=== PATIENT | male | born 1950 | race Caucasian/White ===

== ENCOUNTER 2024-06-15 20:52 | Emergency (ER) | payer MEDICARE, OTHER ==
[2024-06-15 20:55] VITALS: RESP 20; TEMP 96.7
--- NOTE | 2024-06-15 20:59 | ERPHSYRPT ---
- History of Present Illness Time Seen by Provider: 06/15/24 20:58 Historian: patient, EMS Exam Limitations: no limitations Physician History: This is a morbidly obese white male patient who presents to the emergency department transported by the paramedics because of sudden onset of significant vomiting that began at 4 PM this afternoon prior to arrival. However, he does state that he felt nauseated and queasiness yesterday but without vomiting. He has vomited multiple times and has some abdominal pain that he describes as generalized mild achiness as well as associated diarrhea. Patient states that his son has similar symptoms. The interface designer service provided the patient with intravenous Zofran and began intravenous normal saline solution and his symptoms are improving. Patient denies chest pain and he denies shortness of breath. States that he has headache and bodyaches. Patient has a history of diabetes, hypertension, hyperlipidemia, COPD, sleep apnea and coronary artery disease. Timing/Duration: yesterday (Queasiness began yesterday evening), sudden, worse (Today at 4 PM) Abdominal Pain Onset Location: generalized abdomen Severity of Pain-Max: mild Severity of Pain-Current: mild Modifying Factors: Improves With: vomiting Associated Symptoms: headache, loss of appetite, nausea, vomiting, weakness, No shortness of breath Allergies/Adverse Reactions: NSAIDS (Non-Steroidal Anti-Inflamma Adverse Reaction (Severe, Verified 06/15/24 21:05) Irregular Heart Beat metformin Adverse Reaction (Intermediate, Verified 06/15/24 21:05) Diarrhea Home Medications: Allopurinol 300 mg [Zyloprim 300 mg] 1 tab PO HS 06/15/24 [History] Alpha Lipoic Acid 1 tab PO HS 06/15/24 [History] Dapagliflozin Propanediol [Farxiga] 1 tab PO DAILY 06/15/24 [History] Dulaglutide [Trulicity] 4.5 mg SQ WEEKLY 06/15/24 [History] Escitalopram Oxalate 1 tab PO DAILY 06/15/24 [History] Gabapentin [Neurontin ] 100 mg PO TID 06/15/24 [History] Glimepiride 2 mg [Amaryl 2 MG] 1 tab PO DAILY 06/15/24 [History] Lipase/Protease/Amylase [Michael Lopez 12,000 Unit Capsule] 2 tab PO TID 06/15/24 [History] Multivitamin [Multi-Vitamin Daily] 1 tab PO DAILY 06/15/24 [History] Mv-Mn/Iron/Folic Acid/Herb 190 [Vitamin D3 Complete Caplet] 1 tab PO DAILY 06/15 [History] Simvastatin 20Mg [Zocor 20Mg] 1 tab PO HS 06/15/24 [History] icosapent ethyL [Vascepa] 2 cap PO BID 06/15/24 [History] lisinopriL [Lisinopril] 1 tab PO BID 06/15/24 [History] Travel Risk - International Travel Have you traveled outside of the country in past 3 weeks: No - Emerging Infectious Disease Are you exhibiting symptoms associated with any current EIDs: Yes Symptoms: Abdominal Pain, Diarrhea, Headaches/Body Aches/, Vomitting - Review of Systems Constitutional: Weakness Eyes: No Symptoms Ears, Nose, & Throat: No Symptoms Respiratory: No Symptoms Cardiac: No Symptoms Abdominal/Gastrointestinal: Abdominal Pain, Nausea, Vomiting, Diarrhea, Appetite Changes Genitourinary Symptoms: No Symptoms Musculoskeletal: Arthralgias, Myalgias Skin: No Symptoms Neurological: No Symptoms Psychological: No Symptoms Endocrine: No Symptoms Hematologic/Lymphatic: No Symptoms Immunological/Allergic: No Symptoms All Other Systems: Reviewed and Negative - Past Medical History Neurological History: Peripheral Neuropathy Cardiac History: Angina, Coronary Artery Disease, High Cholesterol, Hypertension Respiratory History: COPD, Sleep Apnea Endocrine Medical History: Diabetes Type II, Liver Disease Musculoskeletal History: Arthritis Other Medical History: impaired kidney function - Nursing Vital Signs Nursing Vital Signs: Initial Vital Signs Temperature 96.7 F 06/15/24 20:53 Pulse Rate 115 H 06/15/24 20:53 Respiratory Rate 20 06/15/24 20:53 Blood Pressure 118/82 06/15/24 20:53 O2 Sat by Pulse Oximetry 94 L 06/15/24 20:53 Pain Scale Pain Intensity 2 - Physical Exam General Appearance: no apparent distress, alert, obese Eye Exam: PERRL/EOMI, eyes nml inspection Ears, Nose, Throat Exam: normal ENT inspection, moist mucous membranes Neck Exam: normal inspection, non-tender, supple, full range of motion Respiratory Exam: normal breath sounds, lungs clear, respiratory distress, airway intact, No chest tenderness Cardiovascular Exam: tachycardia Gastrointestinal/Abdomen Exam: soft, normal bowel sounds, No tenderness Rectal Exam: not done Back Exam: normal inspection, normal range of motion, No CVA tenderness, No clemente tebral tenderness Extremity Exam: normal inspection, normal range of motion, pelvis stable Neurologic Exam: alert, oriented x 3, cooperative, inside trucker II-XII nml as tested, normal mood/affect, nml cerebellar function, nml station & gait, sensation nml Skin Exam: normal color, warm, dry Lymphatic Exam: No adenopathy SpO2 Interpretation: borderline oxygenation SpO2: 94 - Course Nursing assessment & vital signs reviewed: Yes EKG Interpreted by Me: RATE ([id number]), Sinus Tach, NORMAL AXIS, NORMAL INTERVALS, NORMAL QRS, Other (No acute ischemia on today's twelve-lead EKG.) Ordered Tests: Active Orders 24 hr Category Date Time Status IV Insertion STAT Care 06/15/24 21:12 Active AMYLASE Stat Lab 06/15/24 21:40 Completed CBC W DIFF Stat Lab 06/15/24 21:40 Completed CMP Stat Lab 06/15/24 21:40 Completed LIPASE Stat Lab 06/15/24 21:40 Completed MONO SCREEN Stat Lab 06/15/24 21:40 Completed UA W/RFX UR CULTURE Stat Lab 06/15/24 21:12 Ordered Medication Summary Discontinued Medications Generic Name Dose Route Start Last Admin Trade Name Freq PRN Reason Stop Dose Admin Lactated Ringer's 1,000 mls @ 999 mls/hr 06/15/24 22:58 06/16/24 00:34 Lactated Ringers IV 06/15/24 23:58 Infused .Q1H1M ONE Infusion Lactated Ringer's Confirm 06/15/24 23:13 Lactated Ringers Administered 06/15/24 23:14 Dose 1,000 mls @ ud IV .STK-MED ONE Ondansetron HCl 4 mg 06/16/24 00:53 Ondansetron Hcl 4 Mg/2 Ml Vial IV 06/16/24 00:54 STAT ONE Pantoprazole Sodium 40 mg 06/15/24 21:12 06/15/24 21:30 Pantoprazole 40 Mg Vial IV 06/15/24 21:13 40 mg STAT ONE Administration Pantoprazole Sodium Confirm 06/15/24 21:25 Pantoprazole 40 Mg Vial Administered 06/15/24 21:26 Dose 40 mg IV .STK-MED ONE Lab/Rad Data: Laboratory Result Diagrams 06/15/24 21:40 06/15/24 21:40 Laboratory Results 06/15/24 06/15/24 06/15/24 Range/Units 21:41 21:40 21:40 WBC (4.23-9.07) x10^3/uL RBC (4.63-6.08) x10^6/uL Hgb (13.7-17.5) g/dL Hct (40.1-51.0) % MCV (79.0-92.2) fL MCH (25.7-32.2) pg MCHC (32.3-36.5) g/dL RDW (11.6-14.4) % Plt Count (163-337) x10^3/uL MPV (9.4-12.4) fL Gran % (34.0-67.9) % Immature Gran % (Auto) (0.001-0.429) % Nucleat RBC Rel Count (0.00-0.2) % Eos # (Auto) (0.04-0.54) x10^3/uL Immature Gran # (Auto) (0.001-0.031) x10^3u/L Absolute Lymphs (auto) (1.32-3.57) x10^3/uL Absolute Monos (auto) (0.30-0.82) x10^3/uL Absolute Nucleated RBC (0.00-0.012) x10^3u/L Lymphocytes % (21.8-53.1) % Monocytes % (5.3-12.2) % Eosinophils % (0.8-7.0) % Basophils % (0.2-1.2) % Absolute Granulocytes (1.78-5.38) x10^3/uL Basophils # (0.01-0.08) x10^3/uL Sodium 143 (135-145) mmol/L Potassium 4.6 (3.5-5.1) mmol/L Chloride 102 (98-107) mmol/L Carbon Dioxide 24 (22-30) mmol/L Anion Gap 21.0 H (5-15) MEQ/L BUN 22 H (9-20) mg/dL Creatinine 1.36 H (0.66-1.25) mg/dL Estimated GFR 55.3 ML/MIN Glucose 200 H (74-106) mg/dL Calcium 9.9 (8.4-10.2) mg/dL Total Bilirubin 0.90 (0.2-1.3) mg/dL AST 49 (17-59) U/L ALT 53 H (0-50) U/L Alkaline Phosphatase 98 (38-126) U/L Serum Total Protein 8.6 H (6.3-8.2) g/dL Albumin 5.0 (3.5-5.0) g/dL Amylase 53 (30-110) U/L Lipase 211 (23-300) U/L Monoscreen NEGATIVE (NEGATIVE) Influenza Type A Ag NEGATIVE (NEGATIVE) Influenza Type B Ag NEGATIVE (NEGATIVE) RSV (PCR) NEGATIVE (NEGATIVE) SARS-CoV-2 (PCR) NEGATIVE (NEGATIVE) 06/15/24 Range/Units 21:40 WBC 9.7 H (4.23-9.07) x10^3/uL RBC 6.17 H (4.63-6.08) x10^6/uL Hgb 19.7 H (13.7-17.5) g/dL Hct 57.8 H (40.1-51.0) % MCV 93.7 H (79.0-92.2) fL MCH 31.9 (25.7-32.2) pg MCHC 34.1 (32.3-36.5) g/dL RDW 13.2 (11.6-14.4) % Plt Count 160 L (163-337) x10^3/uL MPV 8.8 L (9.4-12.4) fL Gran % 77.1 H (34.0-67.9) % Immature Gran % (Auto) 0.2 (0.001-0.429) % Nucleat RBC Rel Count 0.0 (0.00-0.2) % Eos # (Auto) 0.96 H (0.04-0.54) x10^3/uL Immature Gran # (Auto) 0.02 (0.001-0.031) x10^3u/L Absolute Lymphs (auto) 0.74 L (1.32-3.57) x10^3/uL Absolute Monos (auto) 0.45 (0.30-0.82) x10^3/uL Absolute Nucleated RBC 0.00 (0.00-0.012) x10^3u/L Lymphocytes % 7.6 L (21.8-53.1) % Monocytes % 4.6 L (5.3-12.2) % Eosinophils % 9.9 H (0.8-7.0) % Basophils % 0.6 (0.2-1.2) % Absolute Granulocytes 7.48 H (1.78-5.38) x10^3/uL Basophils # 0.06 (0.01-0.08) x10^3/uL Sodium (135-145) mmol/L Potassium (3.5-5.1) mmol/L Chloride (98-107) mmol/L Carbon Dioxide (22-30) mmol/L Anion Gap (5-15) MEQ/L BUN (9-20) mg/dL Creatinine (0.66-1.25) mg/dL Estimated GFR ML/MIN Glucose (74-106) mg/dL Calcium (8.4-10.2) mg/dL Total Bilirubin (0.2-1.3) mg/dL AST (17-59) U/L ALT (0-50) U/L Alkaline Phosphatase (38-126) U/L Serum Total Protein (6.3-8.2) g/dL Albumin (3.5-5.0) g/dL Amylase (30-110) U/L Lipase (23-300) U/L Monoscreen (NEGATIVE) Influenza Type A Ag (NEGATIVE) Influenza Type B Ag (NEGATIVE) RSV (PCR) (NEGATIVE) SARS-CoV-2 (PCR) (NEGATIVE) - Progress Progress: improved Progress Note: 06/15/24 22:16 My medical decision making and the assignment of moderate complexity to this patient's medical issue today is based on review of the patient's past medical history, review of the patient's medication list, reviewed the patient drug allergy list, history present illness and physical findings on examination. The workup in this patient includes intravenous fluid infusion, CBC, CMP, amylase, lipase, monotest, viral swabs. Differential diagnosis includes but is not limited to viral illness, mononucleosis, dehydration, urinary tract infection, DKA 06/16/24 00:08 I interpreted the patient's laboratory data results. The patient does have a normal CO2 and a elevated anion gap. He has evidence of dehydration. Clinically, the patient states that he is feeling much better after the intravenous antiemetic and intravenous fluids. We will wait for him to finish the second liter of crystalloid and reassess him. I think he can be discharged to home. We will make that determination after reassessment. 06/16/24 00:54 I reexamined this patient. He states he is feeling much better and wants to go home. His heart rate only came and ran between 111 and 115 bpm and was sinus tachycardia. He is now running 103 to 104 bpm. He has no chest pain. He has no shortness of breath. His nausea has improved. He has been tolerating clear liquids. Counseled pt/family regarding: lab results, diagnosis, need for follow-up Medical Desision Making - Independent Historian Additional History obtained from: Stereoptician/EMT - Diagnostic Testing Diagnostic test were ordered, analyzed, and reviewed by me: Yes - Risk of complications The pt has a mod risk of morbidity or mortality based on: Need for prescription drug management - Departure Departure Disposition: Home Clinical Impression: Viral syndrome, Dehydration, Arthralgia, Myalgia Condition: Stable Critical Care Time: No Referrals: DEYA TORRES DO [Primary Care Provider] - Follow up/PCP as directed Additional Instructions: Over the next 24 hours, make certain you are drinking plenty of clear liquids. Do not advance your diet until you are drinking clear liquids well. Avoid fatty greasy spicy foods. Continue your medications as prescribed. Prescriptions: Ondansetron ODT 4 MG [Zofran Odt 4 mg] 4 mg PO Q6H PRN PRN #10 tablet PRN Reason: Vomiting
[2024-06-15] MEDS ORDERED: PROTONIX 40 MG IV IV ONE (21:25)
[2024-06-15] MEDS: PROTONIX 40 MG IV IV ONE (21:30)
[2024-06-15 21:43] LABS: Absolute Neutrophil Ct (ANC) 7.48 x10^3/uL (1.78-5.38); BASOPHIL % 0.6 % (0.2-1.2); Basophil (Absolute #) 0.06 x10^3/uL (0.01-0.08); Eosinophil % 9.9 % (0.8-7.0); Eosinophil (Absolute #) 0.96 x10^3/uL (0.04-0.54); Hematocrit 57.8 % (40.1-51.0); Hemoglobin 19.7 g/dL (13.7-17.5); IMMATURE GRAN # 0.02 x10^3u/L (0.001-0.031); IMMATURE GRAN % 0.2 % (0.001-0.429); Lymphocyte (Absolute #) 0.74 x10^3/uL (1.32-3.57); Lymphocytes % 7.6 % (21.8-53.1); Mean Cell Volume 93.7 fL (79.0-92.2); Mean Corpuscular Hemoglobin 31.9 pg (25.7-32.2); Mean Corpuscular Hgb Concent. 34.1 g/dL (32.3-36.5); Mean Platelet Volume 8.8 fL (9.4-12.4); Monocyte (Absolute #) 0.45 x10^3/uL (0.30-0.82); Monocytes % 4.6 % (5.3-12.2); Neutrophil % 77.1 % (34.0-67.9); Platelet Count 160 x10^3/uL (163-337); Red Blood Count 6.17 x10^6/uL (4.63-6.08); Red Cell Distribution Width 13.2 % (11.6-14.4); White Blood Count 9.7 x10^3/uL (4.23-9.07)
[2024-06-15 22:04] LABS: BILIRUBIN,TOTAL 0.9 mg/dL (0.2-1.3); Calcium 9.9 mg/dL (8.4-10.2); Creatinine 1 1.36 mg/dL (0.66-1.25); EST GLOMERULAR FILTRATION RATE 55.3 ML/MIN; Potassium 4.6 mmol/L (3.5-5.1); Total Protein 8.6 g/dL (6.3-8.2)
[2024-06-15 22:31] LABS: INFLUENZA A NEGATIVE (NEGATIVE); INFLUENZA B NEGATIVE (NEGATIVE); RESPIRATORY SYNCTIAL VIRUS NEGATIVE (NEGATIVE); SARS-CoV-2 Xpert Express NEGATIVE (NEGATIVE)
[2024-06-15] MEDS ORDERED: Lactated Ringers 1,000 ML IV ONE (23:13)
[2024-06-15] MEDS: Lactated Ringers 1,000 ML IV ONE (23:13)
[2024-06-16 00:10] VITALS: O2SAT 94
[2024-06-16] MEDS ORDERED: Zofran 4 MG/2 ML VIAL ONE (00:53)
[2024-06-16] MEDS: Zofran 4 MG/2 ML VIAL IV ONE (00:55)
[2024-06-16 01:04] VITALS: BP 112/73; PULSE 102
== END 2024-06-16 01:15 | disposition home or self-care (01) ==
LOC: ED 20:52
DX: B34.9 Viral infection, unspecified (principal); E86.0 Dehydration; M25.50 Pain in unspecified joint; M79.10 Myalgia, unspecified site; R11.2 Nausea with vomiting, unspecified; R10.84 Generalized abdominal pain; R19.7 Diarrhea, unspecified; E11.9 Type 2 diabetes mellitus without complications; I10 Essential (primary) hypertension; E78.5 Hyperlipidemia, unspecified; Z79.84 Long term (current) use of oral hypoglycemic drugs; Z79.85 Long-term (current) use of injectable non-insulin antidiabetic drugs; Z79.899 Other long term (current) drug therapy
CPT/HCPCS: 0241U; 36415; 80053; 82150; 83690; 85025; 86308; 96360; 96374; 96375; 99284; J2405

== ENCOUNTER 2025-03-27 06:49 | Emergency (ER) | payer MEDICARE, OTHER ==
[2025-03-27 06:57] VITALS: TEMP 98.1
[2025-03-27] MEDS ORDERED: Norflex 60 MG/2 ML ONE (07:28)
[2025-03-27] MEDS: Norflex 60 MG/2 ML IM ONE (07:29)
--- NOTE | 2025-03-27 07:38 | ERPHSYRPT ---
- History of Present Illness Time Seen by Provider: 03/27/25 07:18 Source: patient Patient Subjective Stated Complaint: left shoulder pain Triage Nursing Assessment: Pt ambulated into ER without diff. Pt c/o Lt shoulder/lt arm pain. Pt denies any injury to the left shoulder. Pt states, "I think I must've slept on it funny or something but it hurts so bad, I can't move it". Pt was seen at [facility] by Dr. Washington and they told him he needed a left shoulder joint replacement but his A1C was 9 so they won't schedule his surgery until his A1C is less than 8. Physician History: patient comes to the ER due too left shoulder pain going on for a couple months, was seen at bone and joint at [facility] the patient was told his A1C was too high for joint replacement. No trauma, the entire joint hurts when moving the arm, tylenol and ibupfren are not working Occurred: other (months ago) Method of Injury: unknown Quality: sharpness, stabbing Severity of Pain-Max: moderate Severity of Pain-Current: moderate Extremities Pain Location: shoulder: left Modifying Factors: Improves With: movement Associated Symptoms: none Allergies/Adverse Reactions: NSAIDS (Non-Steroidal Anti-Inflamma Adverse Reaction (Severe, Verified 03/27/25 07:10) Irregular Heart Beat metformin Adverse Reaction (Intermediate, Verified 03/27/25 07:10) Diarrhea [id number] Reductase Inhibitor Adverse Reaction (Verified 03/27/25 07:10) Home Medications: Allopurinol 300 mg [Zyloprim 300 mg] 1 tab PO HS 06/15/24 [History] Alpha Lipoic Acid 1 tab PO HS 06/15/24 [History] Escitalopram Oxalate 1 tab PO DAILY 06/15/24 [History] Gabapentin [Neurontin ] 300 mg PO BID 06/15/24 [History] Mv-Mn/Iron/Folic Acid/Herb 190 [Vitamin D3 Complete Caplet] 1 tab PO DAILY 06/15/24 [History] Simvastatin 20Mg [Zocor 20Mg] 1 tab PO HS 06/15/24 [History] icosapent ethyL [Vascepa] 2 tab PO BID 10/20/24 [History] Empagliflozin [Jardiance] 10 mg PO DAILY 11/07/24 [History] Tirzepatide [Mounjaro] 7.5 mg SQ WEEKLY 03/27/25 [History] Hx Tetanus, Diphtheria Vaccination/Date Given: Yes Hx Influenza Vaccination/Date Given: No Hx Pneumococcal Vaccination/Date Given: Yes Travel Risk - International Travel Have you traveled outside of the country in past 3 weeks: No - Emerging Infectious Disease Are you exhibiting symptoms associated with any current EIDs: No Symptoms: Abdominal Pain, Diarrhea, Headaches/Body Aches/, Vomitting - Review of Systems Constitutional: No Symptoms Respiratory: No Cough, No Dyspnea Cardiac: No Chest Pain, No Edema, No Syncope Musculoskeletal: Joint Pain Skin: No Rash - Past Medical History Pertinent Past Medical History: Yes Neurological History: Peripheral Neuropathy Cardiac History: Angina, Coronary Artery Disease, High Cholesterol, Hypertension Respiratory History: COPD, Sleep Apnea Endocrine Medical History: Diabetes Type II, Liver Disease Musculoskeletal History: Arthritis Psycho-Social History: Depression Other Medical History: impaired kidney function. hearing difficulties - Past Surgical History Past Surgical History: Yes Neuro Surgical History: No Pertinent History Cardiac: Cardiac Catheterization, Cardiac Stent Respiratory: No Pertinent History Gastrointestinal: Appendectomy Genitourinary: No Pertinent History Musculoskeletal: Joint Replacement Male Surgical History: No Pertinent History Other Surgical History: Rt knee replacement. xiphoid process removed bone spurs removed bilat - Social History Smoking Status: Former smoker Exposure to second hand smoke: No Drug Use: none - Social Determinants of Health Will the patient participate in the screening: Yes Do you worry about a steady place to live?: No Do you have any problems with any of the following?: No known problems In the past 12 months,have you had to go without utilities?: No Transportation Issues: No Has anyone in your support network made you feel unsafe?: No Have you or anyone in your house had to go w/o enough food: No - Nursing Vital Signs Nursing Vital Signs: Initial Vital Signs Temperature 98.1 F 03/27/25 06:54 Pulse Rate 118 H 03/27/25 06:54 Respiratory Rate 18 03/27/25 06:54 Blood Pressure 150/89 03/27/25 06:54 O2 Sat by Pulse Oximetry 96 03/27/25 06:54 Pain Scale Pain Intensity 10 - Physical Exam General Appearance: alert Cardiovascular/Respiratory Exam: chest non-tender, normal breath sounds, regular rate/rhythm, no respiratory distress Abdominal Exam: non-tender, No guarding Shoulder Exam: limited ROM, pain Skin Exam: normal color, warm, dry SpO2 Interpretation: normal SpO2: 96 O2 Delivery: Room Air - Progress Progress Note: 03/27/25 07:41 patient has a shoulder issue and muscle spasms of the left shoulder, the exam and history is consistent with shoulder arthritis. Exam and history do not point to cardiac issues at this time. patient states Tylenol and ibuprofen is not working. pain gets wore with movement. The patient is supposed to get shoulder surgery but due to elevated A1C the patient is not cleared for surgery. the patient will be sent home with tramadol and flexeril. advised to follow up with ortho, due to the patient having a poor A1C i will not be prescribing steroids - Departure Departure Disposition: Home Clinical Impression: Shoulder pain, left Qualifiers: Chronicity: chronic Qualified Code(s): M25.512 - Pain in left shoulder; G89.29 - Other chronic pain Condition: Stable Critical Care Time: No Referrals: DEYA TORRES DO [Primary Care Provider, [facility]] - Follow up/PCP as directed Instructions: Shoulder Tendinopathy (DC) Prescriptions: Cyclobenzaprine HCl 10 mg [Flexeril 10 MG] 10 mg PO TID #12 tablet Tramadol HCl 50 mg PO BID PRN #6 tablet
[2025-03-27 08:06] VITALS: BP 138/99; PULSE 110; RESP 18; O2SAT 94
== END 2025-03-27 08:20 | disposition home or self-care (01) ==
LOC: ED 06:49
DX: G89.29 Other chronic pain (principal); M25.512 Pain in left shoulder; I10 Essential (primary) hypertension; E11.42 Type 2 diabetes mellitus with diabetic polyneuropathy; Z79.84 Long term (current) use of oral hypoglycemic drugs; Z79.85 Long-term (current) use of injectable non-insulin antidiabetic drugs; Z79.899 Other long term (current) drug therapy